=== PATIENT | male | born 1980 | race Two or more races ===

== ENCOUNTER 2022-12-18 19:20 | Emergency (ER) | payer MEDICARE, OTHER ==
[~2022-12-18] VITALS: Ht 182.9 cm; Wt 166.0 kg
[2022-12-18] MEDS ORDERED: KETOROLAC TROMETH 60MG/2ML VIAL IM ONE (20:00)
[2022-12-18] MEDS ORDERED: HYDROcodone-ACET 5/325MG TAB PO ONE (20:00)
[2022-12-18 20:21] LABS: Mean Corpuscular Hemoglobin 22.5 pg (28.0-32.0); Nucleated Red Blood Cells % 0.1 %
[2022-12-18 20:23] LABS: Basophils # (auto) 0.1 10 ^3/uL (0-0.2); Basophils % (auto) 0.7 % (0.0-2.0); Eosinophils # (auto) 0.2 10 ^3/uL (0-0.8); Eosinophils % (auto) 1.3 % (0.0-7.0); Hematocrit 45.4 % (41.0-53.0); Lymphocytes # (auto) 4.4 10 ^3/uL (0.4-5.4); Lymphocytes % (auto) 34.5 % (10.0-50.0); Mean Corpuscular Hgb Conc. 30.9 g/dL (32.0-36.0); Monocytes # (auto) 1.1 10 ^3/uL (0-1.3); Monocytes % (auto) 8.6 % (0.0-12.0); Neutrophils # (auto) 7.1 10 ^3/uL (1.6-8.6); Neutrophils % (auto) 54.9 % (37.0-80.0); Red Blood Cells 6.22 10^6/uL (4.5-5.90); Red Cell Distribution Width 15.1 % (11.8-14.3); White Blood Cell 12.9 10^3/uL (4.4-10.8)
[2022-12-18 20:35] LABS: Albumin 3.3 g/dL (3.4-5.0); Calcium 8.6 mg/dL (8.5-10.1); Potassium 3.8 mmol/L (3.5-5.1)
[2022-12-18 20:39] LABS: BUN/Creatinine Ratio 12.9 (10.0-20.0); Bilirubin, Total 0.2 mg/dL (0.2-1.0); Total Protein 7.5 g/dL (6.4-8.2)
[2022-12-18] MEDS ORDERED: predniSONE 20 MG TAB PO ONE (21:00)
[2022-12-18] MEDS ORDERED: COLCHICINE 0.6 MG CAP PO ONE (21:00)
[2022-12-18] MEDS ORDERED: IBUP-1455 PO (21:09)
[2022-12-18] MEDS ORDERED: PRED20TA2 PO (21:09)
[2022-12-18] MEDS ORDERED: DexAMETHasone SOD PHOS 10MG/1ML VIAL INJ IM ONE (22:30)
[2022-12-18 23:35] VITALS: BP 128/81
== END 2022-12-19 01:08 | disposition home or self-care (01) ==
LOC: ER 19:20
DX: M10.9 Gout, unspecified (principal); E66.01 Morbid (severe) obesity due to excess calories; Z68.42 Body mass index [BMI] 45.0-49.9, adult
CPT/HCPCS: 36415; 73630; 80053; 84550; 85025; 96372; 99284; J1100; J1885

== ENCOUNTER → 2023-01-30 | Outpatient (CLI) | payer MEDICAID, MEDICARE ==
[~2023-01-30] MED LIST: IBUP-1455 PO; PRED20TA2 PO
[2023-01-30 13:05] LABS: Basophils # (auto) 0.1 10 ^3/uL (0-0.2); Eosinophils # (auto) 0.1 10 ^3/uL (0-0.8); Mean Corpuscular Hemoglobin 22.9 pg (28.0-32.0); Neutrophils # (auto) 4.9 10 ^3/uL (1.6-8.6)
[2023-01-30 13:06] LABS: Basophils % (auto) 0.9 % (0.0-2.0); Eosinophils % (auto) 1.5 % (0.0-7.0); Hematocrit 45.3 % (41.0-53.0); Hemoglobin 14.2 g/dL (13.5-17.5); Lymphocytes # (auto) 3.7 10 ^3/uL (0.4-5.4); Lymphocytes % (auto) 38.5 % (10.0-50.0); Mean Corpuscular Hgb Conc. 31.4 g/dL (32.0-36.0); Monocytes # (auto) 0.8 10 ^3/uL (0-1.3); Monocytes % (auto) 8.4 % (0.0-12.0); Neutrophils % (auto) 50.7 % (37.0-80.0); Nucleated Red Blood Cells % 0.2 %; Red Blood Cells 6.21 10^6/uL (4.5-5.90); Red Cell Distribution Width 15.3 % (11.8-14.3); White Blood Cell 9.7 10^3/uL (4.4-10.8)
[2023-01-30 13:21] LABS: Urine Bacteria NONE SEEN /hpf (None Seen); Urine Blood Negative /uL (Negative); Urine Clarity Clear (Clear); Urine Color Straw (Yellow); Urine Protein, UAD Negative (Negative); Urine Specific Gravity 1.019 (1.001-1.035); Urine Urobilinogen Normal (Negative); Urine WBC <1 /hpf (0 - 3); Urine pH 5.5 (5.0-8.0)
[2023-01-30 13:38] LABS: Alanine Aminotransferase 65 U/L (7-40); Albumin 4.3 g/dL (3.2-4.8); Alkaline Phosphatase 75 U/L (46-116); Anion Gap 10.6 (5-15); Aspartate Aminotransferase 31 U/L (13-40); BUN/Creatinine Ratio 11.7 (10.0-20.0); Blood Urea Nitrogen 11 mg/dL (9-23); Calcium 9.5 mg/dL (8.5-10.1); Carbon Dioxide 27.4 mmol/L (20-30); Chloride 102 mmol/L (98-107); Cholesterol 141 mg/dL (< 200); Glucose 139 mg/dL (74-106); HDL Cholesterol 48 mg/dL (40-59); LDL Cholesterol 83 mg/dL (< 100); Potassium 3.9 mmol/L (3.5-5.1); Sodium 140 mmol/L (136-145); Triglycerides 106 mg/dL (< 150)
[2023-01-30 13:39] LABS: Bilirubin, Total 0.5 mg/dL (0.2-1.0); Total Protein 6.8 g/dL (5.7-8.2)
== END | disposition home or self-care (01) ==
LOC: LAB 12:32
PROVIDERS: ATTEND Nurse Practitioner
DX: E11.9 Type 2 diabetes mellitus without complications (principal); I10 Essential (primary) hypertension; E78.5 Hyperlipidemia, unspecified
CPT/HCPCS: 36415; 80053; 80061; 81001; 83036; 84443; 85025

== ENCOUNTER 2023-08-07 08:11 | Emergency (ER) | payer MEDICAID, MEDICARE ==
[~2023-08-07] VITALS: Ht 182.9 cm; Wt 161.0 kg
[2023-08-07 08:43] VITALS: BP 126/77; PULSE 74; RESP 16; TEMP 97.3; O2SAT 97
[2023-08-07] MEDS: KETOROLAC TROMETH 60MG/2ML VIAL IM ONE (08:52)
[2023-08-07] MEDS ORDERED: MELO-335 PO (09:15)
== END 2023-08-07 09:32 | disposition home or self-care (01) ==
LOC: ER 08:11
DX: M24.9 Joint derangement, unspecified (principal); Z79.1 Long term (current) use of non-steroidal anti-inflammatories (NSAID); Z79.899 Other long term (current) drug therapy
CPT/HCPCS: 73030; 96372; 99283; J1885

== ENCOUNTER 2024-01-28 08:57 | Emergency (ER) | payer OTHER, MEDICAID ==
[~2024-01-28] VITALS: Ht 182.9 cm; Wt 146.7 kg
[~2024-01-28 08:57] MED LIST changes: +MELO15TA29 PO
[2024-01-28 11:30] VITALS: BP 145/88; PULSE 95; RESP 18; TEMP 98; O2SAT 96
== END 2024-01-28 12:16 | disposition home or self-care (01) ==
LOC: ER 08:57
DX: R20.2 Paresthesia of skin (principal); E11.9 Type 2 diabetes mellitus without complications

== ENCOUNTER 2024-10-29 14:31 | Emergency (ER) | payer OTHER, MEDICAID ==
[~2024-10-29] VITALS: Ht 182.9 cm; Wt 150.0 kg
--- NOTE | 2024-10-29 14:48 | ED.PDOC ---
History of Present Illness HPI Comments 44-year-old male with PMHx HTN, DM presents with a chief complaint of chest pain x 45 minutes onset. Patient is also experiencing associated SOB and nausea. Patient mentions that his pain is localized to his right chest, nonradiating, describes as sharp, and rates his pain a 8/10. Patient mentions that onset of pain began while he was at rest. Patient denies experiencing pain like this before in the past. Chief Complaint: Chest Pain Time Seen by MD: 14:41 Primary Care Provider: UNKNOWN Reviewed Notes: Medications, Allergies Allergies: Coded Allergies: NO KNOWN ALLERGIES (Unverified , 12/18/22) Home Meds Active Scripts Meloxicam (Meloxicam) 15 Mg Tab, 1 TAB PO DAILY for 30 Days, #30 TAB 0 Refills Prov:DOMINIQUE OBRIEN GROCERY CLERK STOCKING 08/07/23 Prednisone (Prednisone) 20 Mg Tab, 40 MG PO BID for 5 Days, #20 MG Prov:LULI PANDYA PAC 12/18/22 Ibuprofen Micronized (Ibuprofen) 800 Mg Tab, 800 MG PO Q8HP PRN, #30 TAB Prov:LULI PANDYA PAC 12/18/22 Information Source: Patient Mode of Arrival: Ambulatory Severity: Moderate Timing: Minutes Duration: Since onset Prehospital treatment: None Past Medical History PAST MEDICAL HISTORY: Denies Surgical History: Denies all surgeries Family History Family History: Reviewed,noncontributory to illness, No family hx of Cancer, No family hx of DM, No family hx of Heart marbin, No family hx of HTN, No family hx ofKidney marbin, No family hx of Liver marbin, No family hx of Lung marbin, No family hx of Stroke Social History Smoker: Non-Smoker Alcohol: Denies ETOH Use Drugs: Denies Drug Use Lives In: Home Constitutional: denies: chills, diaphoresis, fatigue, fever, malaise, sweats, weakness, others EENTM: denies: blurred vision, double vision, ear bleeding, ear discharge, ear drainage, ear pain, ear ringing, eye pain, eye redness, hearing loss, mouth pain, mouth swelling, nasal discharge, nose bleeding, nose congestion, nose pain, photophobia, tearing, throat pain, throat swelling, voice changes, others Respiratory: reports: shortness of breath; denies: cough, hemoptysis, orthopnea, SOB at rest, SOB with excertion, stridor, wheezing, others Cardiovascular: reports: chest pain; denies: dizzy spells, diaphoresis, Dyspnea on exertion, edema, irregular heart beat, left arm pain, lightheadedness, pal pitations, PND, syncope, others Gastrointestinal: reports: nausea; denies: abdomen distended, abdominal pain, blood streaked bowels, constipated, diarrhea, dysphagia, difficulty swallowing, hematemesis, melena, poor appetite, poor fluid intake, rectal bleeding, rectal pain, vomiting, others Genitourinary: denies: burning, dysuria, flank pain, frequency, hematuria, incontinence, penile discharge, penile sore, pain, testicle pain, testicle swell ing, urgency, others Neurological: denies: dizziness, fainting, headache, left sided numbness, left sided weakness, numbness, paresthesia, pre-existing deficit, right sided numbness, right sided weakness, seizure, speech problems, tingling, tremors, weakness, others Musculoskeletal: denies: back pain, gout, joint pain, joint swelling, muscle pain, muscle stiffness, neck pain, others Integumetry: denies: bruises, change in color, change in hair/nails, dryness, laceration, lesions, lumps, rash, wounds, others Allergic/Immunocompromised: denies: Difficulty Healing, Frequent Infections, Hives, Itching, others Hematologic/Lymphatic: denies: anemia, blood clots, easy bleeding, easy bruising, swollen glands, others Endocrine: denies: excessive hunger, excessive sweating, excessive thirst, excessive urination, flushing, intolerance to cold, intolerance to heat, unexplained weight gain, unexplained weight loss, others Psychiatric: denies: anxiety, bipolar disorder, depression, hopeless, panic disorder, schizophrenia, sleepless, suicidal, others All Other Systems: Reviewed and Negative Physical Exam General Appearance: No Apparent Distress, Obese HEENT: Normal ENT Inspection, Pharynx Normal, TMs Normal Neck: Full Range of Motion, Non-Tender, Normal, Normal Inspection Respiratory: Chest Non-Tender, Lungs Clear, No Accessory Muscle Use, No Respiratory Distress, Normal Breath Sounds Cardiovascular: No Edema, No JVD, No Murmur, No Gallop, Normal Peripheral Pulses, Regular Rate/Rhythm Breast Exam: Deferred Gastrointestinal: No Organomegaly, Non Tender, No Pulsatile Mass, Normal Bowel Sounds, Soft Genitalia: Deferred Pelvic: Deferred Rectal: Deferred Extremities: No calf tenderness, Normal capillary refill, Normal inspection, Normal range of motion, Non-tender, No pedal edema Musculoskeletal : Apperance: Normal Neurologic: Alert, plant safety engineer II-XII nml as Tested, No Motor Deficits, Normal Affect, Normal Mood, No Sensory Deficits Cerebellar Function: Normal Reflexes: Normal Skin: Dry, Normal Color, Warm Lymphatic: No Adenopathy Was a procedure done? Was a procedure done?: No Differential Dx Considerations may include: ACS, musculoskeletal pain, GERD X-Ray, Labs, Meds, VS Vital Signs Date Time Temp Pulse Resp B/P (MAP) Pulse Ox O2 Delivery O2 Flow Rate FiO2 10/29/24 16:45 89 20 96 Room Air* 0 21 10/29/24 16:43 98.1 100 18 127/70 (89) 94 98.1 10/29/24 15:28 104 10/29/24 14:40 97.8 114 13 130/80 (97) 97 97.8 10/29/24 14:38 103 Lab Test 10/29/24 15:30 10/29/24 14:52 Range/Units Troponin I High Sensitivity < 3 L < 3 L </=54 ng/L White Blood Count 12.6 H 4.4-10.8 10^3/uL Red Blood Count 6.54 H 4.5-5.90 10^6/uL Hemoglobin 15.4 13.5-17.5 g/dL Hematocrit 48.4 41.0-53.0 % Mean Corpuscular Volume 74.0 L 80.0-100.0 fL Mean Corpuscular Hemoglobin 23.5 L 28.0-32.0 pg Mean Corpuscular Hemoglobin Concent 31.7 L 32.0-36.0 g/dL Red Cell Distribution Width 14.9 H 11.8-14.3 % Platelet Count 288 140-450 10^3/uL Mean Platelet Volume 6.9 6.9-10.8 fL Neutrophils (%) (Auto) 56.9 37.0-80.0 % Lymphocytes (%) (Auto) 32.9 10.0-50.0 % Monocytes (%) (Auto) 8.3 0.0-12.0 % Eosinophils (%) (Auto) 1.0 0.0-7.0 % Basophils (%) (Auto) 0.9 0.0-2.0 % Neutrophils # (Auto) 7.2 1.6-8.6 10 ^3/uL Lymphocytes # (Auto) 4.1 0.4-5.4 10 ^3/uL Monocytes # (Auto) 1.0 0-1.3 10 ^3/uL Eosinophils # (Auto) 0.1 0-0.8 10 ^3/uL Basophils # (Auto) 0.1 0-0.2 10 ^3/uL Nucleated Red Blood Cells 0.1 % Sodium Level 140 136-145 mmol/L Potassium Level 3.9 3.5-5.1 mmol/L Chloride Level 102 98-107 mmol/L Carbon Dioxide Level 28 20-31 mmol/L Anion Gap 10 5-15 Blood Urea Nitrogen 14 9-23 mg/dL Creatinine 1.09 0.700-1.30 mg/dL Glomerular Filtration Rate Calc 85 >90 mL/min BUN/Creatinine Ratio 12.8 10.0-20.0 Serum Glucose 126 H 74-106 mg/dL Calcium Level 9.3 8.7-10.4 mg/dL Current Medications Medications (Trade) Dose Ordered Sig/Matias Route Start Time Stop Time Status Last Admin Famotidine (Pepcid Tablet) 20 mg ONCE ONCE PO 10/29/24 16:15 10/29/24 16:17 DC 10/29/24 16:43 Al Hydrox/Mg Hydrox/Simethicone (Maalox Plus) 15 ml ONCE ONCE PO 10/29/24 16:15 10/29/24 16:17 DC 10/29/24 16:43 Time of 1ST Reevaluation: 15:11 Reevaluation 1ST: Unchanged Patient Education/Counseling: Diagnosis, Treatment Family Education/Counseling: No Family Present Departure 1 Departure Time of Disposition: 17:20 (Patient presented with chest pain that was concerning for possible STEMI, ACS, PE, Pneumonia, Muscle Strain, COPD, Dissection. Data: 1. I ordered and reviewed the result of at least 3 labs including a CBC, BMP, and Troponin. 2. I independently interpreted the following tests: EKG which shows normal sinus rhythm and Chest X-ray which shows a benign chest.Risk:This patient presented with a high risk of morbidity due to further diagnostic testing or treatment and may suffer from an acute cardiac or respiratory disorder. After review of all the data patient is unlikely to have a pe , dissection, and is low risk for acs. Patient is stable at this time.Workup so far is benign and patient will be discharged with outpatient followup. ) Impression: Primary Impression: Acute chest pain Disposition: HOME / SELF CARE / HOMELESS Condition: Stable Additional Instructions: You presented today with chest pain. Your workup today was benign including labs, troponin, EKG, chest x-ray. Your pain may be from musculoskeletal strain, acid reflux, anxiety, or many other factors. It is important to follow up with your regular doctor within 1 week. If your symptoms worsen or you have any other concerns please return to the emergency room. Discharged With: Self Critical Care Note Critical Care Time?: Yes Critical care comment: Acute chest pain Authorized and Performed by: Liss Eason MD Total critical care time: Approximately 38 minutes Due to a high probability of clinically significant, life threatening deterioration, the patient required my highest level of preparedness to intervene emergently and I personally spent this critical care time directly and personally managing the patient. This critical care time included obtaining a history; examining the patient; pulse oximetry; ordering and review of studies; arranging urgent treatment with development of a management plan; evaluation of patient's response to treatment; frequent reassessment; and, discussions with other providers. This critical care time was performed to assess and manage the high probability of imminent, life-threatening deterioration that could result in multi-organ failure. It was exclusive of separately billable procedures and treating other patients and teaching time. Please see my other sections and the rest of the note for further information on patient assessment and treatment. Stability Stability form required: No I personally scribed for LISS EASON MD ([email or web address]) on 10/29/24 at 14:48. Electronically submitted by Charan Smith ([email or web address]). LISS EASON MD October 29, 2024 14:48
[2024-10-29 15:08] LABS: Basophils # (auto) 0.1 10 ^3/uL (0-0.2); Basophils % (auto) 0.9 % (0.0-2.0); Eosinophils # (auto) 0.1 10 ^3/uL (0-0.8); Hematocrit 48.4 % (41.0-53.0); Hemoglobin 15.4 g/dL (13.5-17.5); Lymphocytes # (auto) 4.1 10 ^3/uL (0.4-5.4); Lymphocytes % (auto) 32.9 % (10.0-50.0); Mean Corpuscular Hemoglobin 23.5 pg (28.0-32.0); Mean Corpuscular Hgb Conc. 31.7 g/dL (32.0-36.0); Monocytes % (auto) 8.3 % (0.0-12.0); Neutrophils # (auto) 7.2 10 ^3/uL (1.6-8.6); Neutrophils % (auto) 56.9 % (37.0-80.0); Nucleated Red Blood Cells % 0.1 %; Platelet Count (auto) 288 10^3/uL (140-450); Red Blood Cells 6.54 10^6/uL (4.5-5.90); Red Cell Distribution Width 14.9 % (11.8-14.3); White Blood Cell 12.6 10^3/uL (4.4-10.8)
[2024-10-29 15:19] LABS: Anion Gap 10 (5-15); Carbon Dioxide 28 mmol/L (20-31); Chloride 102 mmol/L (98-107); Potassium 3.9 mmol/L (3.5-5.1); Sodium 140 mmol/L (136-145)
[2024-10-29 15:20] LABS: Calcium 9.3 mg/dL (8.7-10.4)
[2024-10-29 15:25] LABS: BUN/Creatinine Ratio 12.8 (10.0-20.0); Blood Urea Nitrogen 14 mg/dL (9-23)
[2024-10-29 15:34] LABS: Glucose 126 mg/dL (74-106)
--- NOTE | 2024-10-29 16:37 | DVH ---
INDICATION: chest pain TECHNIQUE: Frontal view of the chest. COMPARISON: None FINDINGS: Findings:. The heart and mediastinal contours are grossly unremarkable. There is no evidence of pleu ral disease. The lungs are clear. The bony structures of the chest are intact without fracture. IMPRESSION: 1. No evidence of acute disease.
[2024-10-29] MEDS: MAALOX PLUS or MAALOX 30 ML PO ONE (16:43)
[2024-10-29] MEDS: FAMOTIDINE 20 MG TAB PO ONE (16:43)
[2024-10-29 16:45] VITALS: PULSE 89; RESP 20; O2SAT 96
[2024-10-29 17:55] VITALS: BP 111/76; PULSE 98; RESP 17; TEMP 98.4; O2SAT 97
--- NOTE | 2024-10-29 19:07 | ECG ---
[facility] Test Date: 2024-10-29 Test Time: 15:26:25 Pat Name: VAUGHN COLLIER Department: ED Room: Gender: M Hr Clerk: JOAN : 1980 Requested By: LISS EASON Order Number: [id number] Reading MD: Gregory Haile Measurements Intervals [place] Rate: 104 P: 53 [place]: 130 QRS: 21 QRSD: 89 T: -6 QT: 327 QTc: 430 Interpretive Statements Sinus tachycardia Abnormal R-wave progression, early transition Inferior infarct, old Electronically Signed On 11-02-2024 11:52:10 PDT by Gregory Haile Please click the below link to view image of tracing.
--- NOTE | 2024-10-30 06:14 | ECG ---
[facility] Test Date: 2024-10-29 Test Time: 14:38:19 Pat Name: VAUGHN COLLIER Department: ER Room: Gender: M Site Controller: LAZARO : 1980 Requested By: LISS EASON Order Number: [id number] Reading MD: Gregory Haile Measurements Intervals [place] Rate: 103 P: 61 FL: 133 QRS: 26 QRSD: 88 T: -15 QT: 328 QTc: 430 Interpretive Statements Sinus tachycardia Abnormal R-wave progression, early transition Borderline T abnormalities, diffuse leads Electronically Signed On 11-02-2024 11:51:32 PDT by Gregory Haile Please click the below link to view image of tracing.
== END 2024-10-29 18:02 | disposition home or self-care (01) ==
LOC: ER 14:31
DX: R07.9 Chest pain, unspecified (principal); E11.9 Type 2 diabetes mellitus without complications; I10 Essential (primary) hypertension; Z79.1 Long term (current) use of non-steroidal anti-inflammatories (NSAID); Z79.52 Long term (current) use of systemic steroids
CPT/HCPCS: 36415; 71045; 80048; 84484; 85025; 93005

== ENCOUNTER 2024-12-01 08:42 | Emergency (ER) | payer OTHER, MEDICAID ==
[~2024-12-01] VITALS: Ht 182.9 cm; Wt 150.6 kg
[2024-12-01 09:03] VITALS: BP 130/79; PULSE 77; RESP 18; TEMP 99; O2SAT 95
== END 2024-12-01 10:49 | disposition left against medical advice (07) ==
LOC: ER 08:42
DX: M79.601 Pain in right arm (principal); Z53.21 Procedure and treatment not carried out due to patient leaving prior to being seen by health care provider

== ENCOUNTER 2025-01-22 20:08 | Emergency (ER) | payer OTHER, MEDICAID ==
[~2025-01-22] VITALS: Ht 182.9 cm; Wt 153.2 kg
--- NOTE | 2025-01-22 20:20 | ECG ---
[facility] Test Date: 2025-01-22 Test Time: 20:11:43 Pat Name: VAUGHN COLLIER Department: ED Room: Gender: M Extrusion Die Template Maker: GEMINI : 1980 Requested By: MARLON VALDEZ Order Number: [id number] Reading MD: Gregory Haile Measurements Intervals [place] Rate: 110 P: 49 [place]: 138 QRS: 34 QRSD: 87 T: 25 QT: 356 QTc: 482 Interpretive Statements Sinus tachycardia Abnormal R-wave progression, early transition Borderline prolonged QT interval Baseline wander in lead(s) V1,V2,V3,V5 Electronically Signed On 01-25-2025 22:52:07 PDT by Gregory Haile Please click the below link to view image of tracing.
--- NOTE | 2025-01-22 20:25 | ED.PDOC ---
History of present illness HPI Comments 44-year-old male who came to ER for hyperglycemia. Patient has history of hypertension diabetes. Has good compliance to his medications. For the past few days, patient has been experiencing polyuria, polydipsia, blurring of vision, and generalized muscle spasms. [place] urgent [facility] earlier, noted blood sugar levels of 584, and was advised to go to the nearest ER for further evaluation and management. Upon arrival, blood sugar read high Chief Complaint: Hyperglycemia Time Seen by MD: 20:25 Primary Care Provider: ARTUR History of present illness: Dental Specialist Notes Allergies: Coded Allergies: NO KNOWN ALLERGIES (Unverified , 12/18/22) Home Meds Active Scripts Meloxicam (Meloxicam) 15 Mg Tab, 1 TAB PO DAILY for 30 Days, #30 TAB 0 Refills Prov:DOMINIQUE OBRIEN DIRECTOR SECURITY RISK MANAGEMENT 08/07/23 Prednisone (Prednisone) 20 Mg Tab, 40 MG PO BID for 5 Days, #20 MG Prov:LULI PANDYA PAC 12/18/22 Ibuprofen Micronized (Ibuprofen) 800 Mg Tab, 800 MG PO Q8HP PRN, #30 TAB Prov:LULI PANDYA PAC 12/18/22 Information Source: Patient, Emergency Med Personnel Mode of Arrival: EMS Timing: Days Duration: Since onset Prehospital treatment: Accucheck History of: Diabetes, Oral hypoglycemic use Associated signs and symptoms: Blurred Vision Past Medical History PAST MEDICAL HISTORY: DM, HTN Surgical History: Denies all surgeries Family History Family History: Reviewed,noncontributory to illness Social History Smoker: Non-Smoker Alcohol: Denies ETOH Use Drugs: Denies Drug Use Lives In: Home Constitutional: denies: chills, diaphoresis, fatigue, fever, malaise, sweats, weakness, others EENTM: reports: blurred vision; denies: double vision, ear bleeding, ear di scharge, ear drainage, ear pain, ear ringing, eye pain, eye redness, hearing loss, mouth pain, mouth swelling, nasal discharge, nose bleeding, nose congestion, nose pain, photophobia, tearing, throat pain, throat swelling, voice changes, others Respiratory: denies: cough, hemoptysis, orthopnea, SOB at rest, shortness of breath, SOB with excertion, stridor, wheezing, others Cardiovascular: denies: chest pain, dizzy spells, diaphoresis, Dyspnea on exertion, edema, irregular heart beat, left arm pain, lightheadedness, palpitations, PND, syncope, others Gastrointestinal: denies: abdomen distended, abdominal pain, blood streaked bowels, constipated, diarrhea, dysphagia, difficulty swallowing, hematemesis, melena, nausea, poor appetite, poor fluid intake, rectal bleeding, rectal pain, vomiting, others Genitourinary: denies: burning, dysuria, flank pain, frequency, hematuria, incontinence, penile discharge, penile sore, pain, testicle pain, testicle swelling, urgency, others Neurological: denies: dizziness, fainting, headache, left sided numbness, left sided weakness, numbness, paresthesia, pre-existing deficit, right sided numbness, right sided weakness, seizure, speech problems, tingling, tremors, weakness, others Musculoskeletal: denies: back pain, gout, joint pain, joint swelling, muscle pain, muscle stiffness, neck pain, others Integumetry: denies: bruises, change in color, change in hair/nails, dryness, laceration, lesions, lumps, rash, wounds, others Allergic/Immunocompromised: denies: Difficulty Healing, Frequent Infections, Hives, Itching, others Hematologic/Lymphatic: denies: anemia, blood clots, easy bleeding, easy bruising, swollen glands, others Endocrine: reports: excessive thirst, excessive urination; denies: excessive hunger, excessive sweating, flushing, intolerance to cold, intolerance to heat, unexplained weight gain, unexplained weight loss, others Psychiatric: denies: anxiety, bipolar disorder, depression, hopeless, panic disorder, schizophrenia, sleepless, suicidal, others Physical Exam General Appearance: No Apparent Distress, Normal HEENT: Normal ENT Inspection, Pharynx Normal, TMs Normal Neck: Full Range of Motion, Non-Tender, Normal, Normal Inspection Respiratory: Chest Non-Tender, Lungs Clear, No Accessory Muscle Use, No Respiratory Distress, Normal Breath Sounds Cardiovascular: No Edema, No JVD, No Murmur, No Gallop, Normal Peripheral Pulses, Regular Rate/Rhythm Breast Exam: Deferred Gastrointestinal: No Organomegaly, Non Tender, No Pulsatile Mass, Normal Bowel Sounds, Soft Genitalia: Deferred Pelvic: Deferred Rectal: Deferred Extremities: No calf tenderness, Normal capillary refill, Normal inspection, Normal range of motion, Non-tender, No pedal edema Musculoskeletal : Apperance: Normal Neurologic: Alert, licensed mental health counselor II-XII nml as Tested, No Motor Deficits, Normal Affect, Normal Mood, No Sensory Deficits Cerebellar Function: Normal Reflexes: Normal Skin: Dry, Normal Color, Warm Lymphatic: No Adenopathy Was a procedure done? Was a procedure done?: No Differential Diagnosis (DM) Differential Diagnosis: DKA, Hyperglycemia, UTI X-Ray, Labs, Meds, VS Vital Signs Date Time Temp Pulse Resp B/P (MAP) Pulse Ox O2 Delivery O2 Flow Rate FiO2 01/22/25 21:04 98.8 105 16 121/62 (81) 95 98.8 01/22/25 21:04 105 16 95 Room Air 01/22/25 20:11 11 01/22/25 20:10 98.1 112 18 137/94 97 98.1 Lab Test 01/22/25 21:47 01/22/25 21:00 01/22/25 20:32 Range/Units POC Glucose 576 *H 70-106 mg/dl White Blood Count 12.6 H 4.4-10.8 10^3/uL Red Blood Count 6.55 H 4.5-5.90 10^6/uL Hemoglobin 15.5 13.5-17.5 g/dL Hematocrit 48.2 41.0-53.0 % Mean Corpuscular Volume 73.6 L 80.0-100.0 fL Mean Corpuscular Hemoglobin 23.7 L 28.0-32.0 pg Mean Corpuscular Hemoglobin Concent 32.2 32.0-36.0 g/dL Red Cell Distribution Width 14.2 11.8-14.3 % Platelet Count 266 140-450 10^3/uL Mean Platelet Volume 7.9 6.9-10.8 fL Neutrophils (%) (Auto) 51.5 37.0-80.0 % Lymphocytes (%) (Auto) 38.1 10.0-50.0 % Monocytes (%) (Auto) 8.4 0.0-12.0 % Eosinophils (%) (Auto) 1.1 0.0-7.0 % Basophils (%) (Auto) 0.9 0.0-2.0 % Neutrophils # (Auto) 6.5 1.6-8.6 10 ^3/uL Lymphocytes # (Auto) 4.8 0.4-5.4 10 ^3/uL Monocytes # (Auto) 1.1 0-1.3 10 ^3/uL Eosinophils # (Auto) 0.1 0-0.8 10 ^3/uL Basophils # (Auto) 0.1 0-0.2 10 ^3/uL Nucleated Red Blood Cells 0.2 % Sodium Level 126 L 136-145 mmol/L Potassium Level 4.5 3.5-5.1 mmol/L Chloride Level 92 L 98-107 mmol/L Carbon Dioxide Level 21 20-31 mmol/L Anion Gap 13 5-15 Blood Urea Nitrogen 19 9-23 mg/dL Creatinine 1.41 H 0.700-1.30 mg/dL Glomerular Filtration Rate Calc 63 >90 mL/min BUN/Creatinine Ratio 13.5 10.0-20.0 Serum Glucose 585 *H 74-106 mg/dL Calcium Level 9.2 8.7-10.4 mg/dL Magnesium Level 1.8 1.6-2.6 mg/dL Total Bilirubin 0.3 0.2-1.0 mg/dL Aspartate Amino Transferase (AST) 42 H 13-40 U/L Alanine Aminotransferase (ALT) 65 H 7-40 U/L Alkaline Phosphatase 80 46-116 U/L Total Protein 7.1 5.7-8.2 g/dL Albumin 4.5 3.2-4.8 g/dL Beta-Hydroxybutyric Acid 0.925 H < 0.4 mmol/L Blood Gas Specimen Type Venous Blood Gas Sample Site Vbg - n/a Blood Gas Patient Temperature 37.0 Arterial Blood Date Drawn [id number] Brian Test N/a Venous Blood pH 7.407 7.320-7.430 Venous Blood pCO2 at Patient Temp 33.7 L 38.0-54.0 mmHg Venous Blood pO2 at Patient Temp 66.4 H 23.0-48.0 mmHg Venous Blood HCO3 20.7 L 22.0-29.0 mmol/L Venous Blood Base Excess -3.0 L -2.0-3.0 mmol/L Blood Gas Modality Room air Blood Gas Spontaneous Rate 20 FiO2 % 21.0 Current Medications Medications (Trade) Dose Ordered Sig/Matias Route Start Time Stop Time Status Last Admin Sodium Chloride 1,000 ml @ 1,000 mls/hr Q1H ONCE IVB 01/22/25 20:30 01/22/25 21:29 DC 01/22/25 20:58 EXAM: XY CHEST PORTABLE CLINICAL HISTORY: SOB TECHNIQUE: Single AP view of the chest WID: COMPARISON: XY CHEST PORTABLE on DOS: 10/29/24 FINDINGS: Lines and tubes: None Chest: The heart size and pulmonary vasculature is within normal limits. No pleural effusion, pneumothorax, or consolidation. The osseous structures are grossly intact. IMPRESSION: No acute cardiopulmonary abnormality. Time of 1ST Reevaluation: 20:20 Reevaluation 1ST: Unchanged Patient Education/Counseling: Diagnosis, Treatment Family Education/Counseling: No Family Present SEPSIS Sepsis Screen Physician Orders Urinalysis (01/22/25 20:19) Chest Portable (01/22/25 20:19) Venous Blood Gas (01/22/25 20:19) Insulin R (Human) (Insulin R) (01/22/25 22:15) NS (01/22/25 22:15) Vital Signs Date Time Temp Pulse Resp B/P (MAP) Pulse Ox O2 Delivery O2 Flow Rate FiO2 01/22/25 21:04 98.8 105 16 121/62 (81) 95 98.8 01/22/25 21:04 105 16 95 Room Air 01/22/25 20:11 11 01/22/25 20:10 98.1 112 18 137/94 97 98.1 Laboratory Tests Test 01/22/25 21:00 White Blood Count 12.6 10^3/uL (4.4-10.8) H Medications Medications Dose Ordered Sig/Matias Route Start Time Stop Time Status Last Admin Dose Admin Sodium Chloride 1,000 ml @ 1,000 mls/hr Q1H ONCE IVB 01/22/25 20:30 01/22/25 21:29 DC 01/22/25 20:58 Departure 1 Departure Time of Disposition: 22:03 Impression: Primary Impression: Acute renal injury Additional Impressions: Uncontrolled diabetes mellitus Type 2 diabetes mellitus with hyperglycemia Disposition: ADMITTED INPATIENT Admit to: Med Surg Condition: Guarded Comments 44-year-old male with a history of type 2 diabetes on metformin at home and has been compliant with his medication now presents with generalized weakness and polydipsia and polyuria for a few days. Patient noted to have high blood glucose by paramedics. Patient was given IV fluids and insulin. His lab results suggest a acute renal injury with a creatinine of 1.4 and severe hyperglycemia that is not improved after a L of fluids. Patient will need admission for acute renal injury and uncontrolled type 2 diabetes with hyperglycemia, possible hyperosmolar syndrome Critical Care Note Critical Care Time?: Yes (35 min-critical care time only) Critical care comment: Total critical care time: Approximately 36 minutes Due to a high probability of clinically significant, life threatening deterio ration, the patient required my highest level of preparedness to intervene emergently and I personally spent this critical care time directly and personally managing the patient. This critical care time included obtaining a history; examining the patient; pulse oximetry; ordering and review of studies; arranging urgent treatment with development of a management plan; evaluation of patient's response to treatment; frequent reassessment; and, discussions with other providers. This critical care time was performed to assess and manage the high probability of imminent, life-threatening deterioration that could result in multi-organ failure. It was exclusive of separately billable procedures and treating other patients. Stability Stability form required: No Heart Score Heart Score: Heart Score Response (Comments) Value History N/A 0 EKG N/A 0 Age N/A 0 Risk Factors N/A 0 Troponin N/A 0 Total 0 I personally scribed for MARLON VALDEZ MD ([email or web address]) on 01/22/25 at 20:25. Electronically submitted by Vern Bartholomew ([facility] I personally scribed for MARLON VALDEZ MD ([email or web address]) on 01/22/25 at 21:55. Electronically submitted by Vern Bartholomew ([facility] MARLON VALDEZ MD Jan 22, 2025 20:25
[2025-01-22] MEDS: SODIUM CHLORIDE 0.9% 1,000 ML IVB ONE (20:58)
[2025-01-22 21:16] LABS: Nucleated Red Blood Cells % 0.2 %
[2025-01-22 21:18] LABS: Hematocrit 48.2 % (41.0-53.0); Hemoglobin 15.5 g/dL (13.5-17.5); Mean Corpuscular Hemoglobin 23.7 pg (28.0-32.0); Mean Corpuscular Volume 73.6 fL (80.0-100.0)
[2025-01-22 21:24] LABS: Alkaline Phosphatase 80 U/L (46-116); Anion Gap 13 (5-15); BUN/Creatinine Ratio 13.5 (10.0-20.0); Blood Urea Nitrogen 19 mg/dL (9-23); Calcium 9.2 mg/dL (8.7-10.4); Carbon Dioxide 21 mmol/L (20-31); Magnesium 1.8 mg/dL (1.6-2.6); Potassium 4.5 mmol/L (3.5-5.1); Total Protein 7.1 g/dL (5.7-8.2)
[2025-01-22 21:25] LABS: Alanine Aminotransferase 65 U/L (7-40); Albumin 4.5 g/dL (3.2-4.8); Chloride 92 mmol/L (98-107); Sodium 126 mmol/L (136-145)
[2025-01-22 21:27] LABS: Bilirubin, Total 0.3 mg/dL (0.2-1.0); Glucose 585 mg/dL (74-106)
--- NOTE | 2025-01-22 21:39 | DVH ---
EXAM: XY CHEST PORTABLE CLINICAL HISTORY: SOB TECHNIQUE: Single AP view of the chest WID: COMPARISON: XY CHEST PORTABLE on DOS: 10/29/24 FINDINGS: Lines and tubes: None Chest: The heart size and pulmonary vasculature is within normal limits. No pleural effusion, pneumothorax, or consolidation. The osseous structures are grossly intact. IMPRESSION: No acute cardiopulmonary abnormality.
[2025-01-22] MEDS: SODIUM CHLORIDE 0.9% 1,000 ML IV ONE (22:15)
[2025-01-22] MEDS: InsuLIN REG 1unit/0.01ml Soln (100units/ml) SC ONE (22:17)
[2025-01-22 22:34] LABS: Urine Protein, UAD Negative (Negative)
[2025-01-23 02:15] VITALS: BP 128/87; PULSE 101; RESP 20; TEMP 97.9; O2SAT 96
== END 2025-01-23 02:15 | disposition short-term general hospital (02) ==
LOC: EDBD 20:08 → ER 20:08
DX: N17.9 Acute kidney failure, unspecified (principal); E11.65 Type 2 diabetes mellitus with hyperglycemia; Z79.899 Other long term (current) drug therapy
CPT/HCPCS: 36415; 36600; 71045; 80053; 81001; 82010; 82805; 82947; 83735; 85025; 93005; 96360; 96361; 99291; J1815; J7030; 12002; 82962